=== PATIENT | female | born 1990 | race Two or more races ===

== ENCOUNTER 2023-08-17 15:00 | Inpatient (IN) | payer OTHER ==
[~2023-08-17] VITALS: Ht 157.5 cm; Wt 68.0 kg
[2023-08-31 08:06] LABS: HEMATOCRIT 33.1 % (36.0-45.00); HEMOGLOBIN 11.4 g/dL (12.0-15.00); MEAN CELL VOLUME 80.6 fL (80.00-100.00); MEAN CORPUSCULAR HEMOGLOBIN 27.7 pg (27.00-32.0); MEAN CORPUSCULAR HGB CONC 34.4 g/dl (32.0-36.0); PLATELET COUNT 197 K/uL (150-450); RED CELL DISTRIBUTION WIDTH 15.1 % (11.5-14.5)
[2023-08-31 08:16] LABS: URINE APPEARANCE Clear; URINE BILIRRUBIN Negative (NEGATIVE); URINE BLOOD Negative; URINE COLOR Yellow; URINE GLUCOSE Negative (NEGATIVE); URINE LEUKOCYTE Small; URINE NITRATE Negative; URINE PROTEIN Negative (NEGATIVE); URINE UROBILINOGEN 0.2 E.U./dl
[2023-08-31 08:20] LABS: URINE BACTERIA 79.3 uL (0.0-1933); URINE WBC 8.3 uL (0.0-23.2)
[2023-08-31] MEDS ORDERED: VALACYCLOVIR1000 MG PO (08:25)
[2023-08-31 08:35] LABS: INR < 0.93; PARTIAL THROMBOPLASTIN TIME 26.8 SECONDS (22.0-34.0); PROTHROMBIN TIME 9.5 SECONDS (9.0-11.5)
[2023-08-31 08:40] LABS: URINE RBC 0.2 uL (0.0-20.8)
[2023-08-31 08:43] LABS: ALBUMIN 2.8 gm/dL (3.4-5.0); BILIRUBIN TOTAL 0.34 mg/dL (0.3-1.2); CALCIUM 8.8 mg/dL (8.5-10.1); CREATININE SERUM 0.71 mg/dL (0.55-1.02); GFR 94.23; GLOBULINA 4.1 G/DL (2.4-3.5); POTASSIUM 3.83 mEq/L (3.5-5.1); TOTAL PROTEIN 6.9 gm/dL (6.4-8.2)
[2023-09-01 06:37] LABS: HEMOGLOBIN 9.7 g/dL (12.0-15.00); MEAN CELL VOLUME 81.6 fL (80.00-100.00); MEAN CORPUSCULAR HEMOGLOBIN 28.2 pg (27.00-32.0); MEAN CORPUSCULAR HGB CONC 34.5 g/dl (32.0-36.0); PLATELET COUNT 173 K/uL (150-450); RED BLOOD COUNT 3.44 M/uL (4.00-6.00); RED CELL DISTRIBUTION WIDTH 14.9 % (11.5-14.5)
== END 2023-09-02 16:49 | disposition home or self-care (01) | DRG 807 ==
LOC: LDR 08-24 15:00 → OB/GYN 08-31 07:20
PROVIDERS: Obstetrics & Gynecology Gynecology; ADMIT Obstetrics & Gynecology; ATTEND Obstetrics & Gynecology
PROC: 10E0XZZ Delivery of Products of Conception, External Approach (ICD-10-PCS; principal; 2023-08-31)
PROC: 0UQG7ZZ Repair Vagina, Via Natural or Artificial Opening (ICD-10-PCS; 2023-08-31)
PROC: 0UQMXZZ Repair Vulva, External Approach (ICD-10-PCS; 2023-08-31)
PROC: 4A1HXCZ Monitoring of Products of Conception, Cardiac Rate, External Approach (ICD-10-PCS; 2023-08-31)
DX: O70.0 First degree perineal laceration during delivery (principal); Z37.0 Single live birth; Z3A.39 39 weeks gestation of pregnancy; Z20.822 Contact with and (suspected) exposure to COVID-19

== ENCOUNTER 2023-08-22 08:53 | Outpatient (CLI) | payer OTHER | END 2023-08-22 09:40 | disposition home or self-care (01) | LOC: NST 08:53 | PROVIDERS: ATTEND Obstetrics & Gynecology Maternal & Fetal Medicine | DX: Z34.83 Encounter for supervision of other normal pregnancy, third trimester (principal) ==

== ENCOUNTER 2023-08-26 09:43 | Outpatient (CLI) | payer OTHER | END 2023-08-26 11:30 | disposition home or self-care (01) | LOC: NST 09:43 | PROVIDERS: ATTEND Obstetrics & Gynecology Gynecology | DX: Z34.83 Encounter for supervision of other normal pregnancy, third trimester (principal) ==

== ENCOUNTER 2025-09-13 07:35 | Inpatient (IN) | payer OTHER ==
[~2025-09-13] VITALS: Ht 157.5 cm; Wt 63.5 kg
[~2025-09-13 07:35] MED LIST: VALACYCLOVIR1000 MG PO
[2025-09-14 08:28] VITALS: BP 102/74
[2025-09-14] MEDS ORDERED: MORPHINE SULFATE 4 MG/ML VIAL IV PRN (09:45)
[2025-09-14] MEDS ORDERED: RINGERS SOLUTION,LACTATED 1,000 ML IV SCH (09:45)
[2025-09-14] MEDS ORDERED: PRILOSEC10 MG PO (09:53)
[2025-09-14] MEDS ORDERED: PRENATA CHEWAB1 EACH PO (09:53)
[2025-09-14] MEDS ORDERED: VALTREX1000 MG PO (09:54)
[2025-09-14 10:01] LABS: BASO % 0.4 % (0.1-1.2); EOS # 0.06 (0.04-0.54); EOS % 0.5 % (0.7-7.0); LYMPH # 1.95 (1.18-3.74); LYMPH % 17.6 % (19.3-53.1); MEAN PLATELET VOLUME 10.40 fl (9.4-12.4); MONO # 0.68 (0.24-0.82); MONO % 6.1 % (4.7-12.5); NEUT # 8.29 (1.56-6.13); NEUT % 74.9 % (34.0-71.1); RED CELL DISTRIBUTION WIDTH 14.2 % (11.6-14.4)
[2025-09-14 10:39] LABS: INR < 0.93
[2025-09-14 10:55] LABS: ALT/SGPT 16.0 U/L (12-78); AST/SGOT 18.0 U/L (15-37); BILIRUBIN TOTAL 0.44 mg/dL (0.3-1.2); BUN CREA RATIO 13.0 (7.0-25.0); CREATININE SERUM 0.52 mg/dL (0.55-1.02); GFR 133.43; GLOBULINA 4.6 G/DL (2.4-3.5); GLUCOSE FASTING 80.0 mg/dL (65-100); OSMOLALITY SERUM 276.0 MOSM/KG (275-295)
[2025-09-14 11:50] VITALS: BP 114/70
[2025-09-14] MEDS ORDERED: LIDOCAINE HCL 1% 10ML VIAL ONE (13:14)
[2025-09-14] MEDS ORDERED: CHLORHEXIDINE GLUCONATE 120 ML BOTTLE TOP ONE (13:14)
[2025-09-14] MEDS ORDERED: OXYTOCIN 20 UNITS/1000ML RL PIGGYBAG IV ONE (13:14)
[2025-09-14] MEDS ORDERED: ERYTHROMYCIN BASE OPHT 1GM EACH TUBE OP ONE (13:14)
[2025-09-14] MEDS ORDERED: OXYTOCIN 500 ML IV ONE (13:30)
[2025-09-14] MEDS ORDERED: OXYTOCIN 1,000 ML IV SCH (14:30)
[2025-09-14] MEDS ORDERED: CHLORHEXIDINE GLUCONATE 120 ML BOTTLE TP SCH (14:30)
[2025-09-14] MEDS ORDERED: KETOROLAC TROMETHAMINE 30 MG VIAL IV NR (14:45)
[2025-09-14 15:21] VITALS: BP 104/54
[2025-09-14 20:45] VITALS: BP 121/74
[2025-09-15] VITALS: BP 91/88
[2025-09-15 07:48] LABS: BASO % 0.4 % (0.1-1.2); EOS # 0.08 (0.04-0.54); EOS % 0.7 % (0.7-7.0); LYMPH # 2.04 (1.18-3.74); LYMPH % 18.1 % (19.3-53.1); MEAN PLATELET VOLUME 10.80 fl (9.4-12.4); MONO # 0.58 (0.24-0.82); MONO % 5.2 % (4.7-12.5); NEUT # 8.46 (1.56-6.13); NEUT % 75.2 % (34.0-71.1); RED CELL DISTRIBUTION WIDTH 14.6 % (11.6-14.4)
[2025-09-15 08:00] VITALS: BP 100/64
[2025-09-15] MEDS ORDERED: DOCUSATE SODIUM 100MG CAP PO SCH (13:40)
[2025-09-15 15:49] VITALS: BP 101/67
[2025-09-16] VITALS: BP 107/71
[2025-09-16 08:27] VITALS: BP 122/81
== END 2025-09-16 13:22 | disposition home or self-care (01) | DRG 807 ==
LOC: OB/GYN 07:35 → LDR 09-14 09:18 → OB/GYN 09-14 15:08
PROVIDERS: Obstetrics & Gynecology; ADMIT Obstetrics & Gynecology Gynecology; ATTEND Obstetrics & Gynecology Gynecology
PROC: 10E0XZZ Delivery of Products of Conception, External Approach (ICD-10-PCS; principal; 2025-09-14)
PROC: 0UQMXZZ Repair Vulva, External Approach (ICD-10-PCS; 2025-09-14)
PROC: 4A1HXCZ Monitoring of Products of Conception, Cardiac Rate, External Approach (ICD-10-PCS; 2025-09-14)
DX: O70.0 First degree perineal laceration during delivery (principal); Z37.0 Single live birth; Z3A.38 38 weeks gestation of pregnancy

== ENCOUNTER 2025-09-13 10:21 | Outpatient (CLI) | payer OTHER ==
[2025-09-14] MEDS ORDERED: PRENATA CHEWAB1 EACH PO (09:53)
[2025-09-14] MEDS ORDERED: PRILOSEC10 MG PO (09:53)
[2025-09-14] MEDS ORDERED: VALTREX1000 MG PO (09:54)
== END 2025-09-13 11:44 | disposition home or self-care (01) ==
LOC: NST 10:21
PROVIDERS: ATTEND Obstetrics & Gynecology Gynecology
DX: Z34.83 Encounter for supervision of other normal pregnancy, third trimester (principal)